=== PATIENT | male | born 1990 | race Asian ===

== ENCOUNTER 2016-08-25 01:04 | Emergency (ER) | payer BC ==
[~2016-08-25] VITALS: Ht 170.2 cm; Wt 72.6 kg
[2016-08-25 01:10] VITALS: BP_SYST 139
[2016-08-25 01:50] LABS: BILIRUBIN,URINE NEGATIVE (NEGATIVE); BLOOD, URINE NEGATIVE (NEGATIVE); CLARITY/URINE CLEAR (CLEAR); COLOR,URINE YELLOW (YELLOW); GLUCOSE,URINE NEGATIVE (NEGATIVE); KETONES,URINE NEGATIVE (NEGATIVE); LEUKOCYTE ESTERASE ,URINE NEGATIVE (NEGATIVE); NITRITE, URINE NEGATIVE (NEGATIVE); PROTEIN URINE NEGATIVE (NEGATIVE); UROBILINOGEN,URINE 0.2 (0.2-1.0)
[2016-08-25 01:58] VITALS: BP_SYST 133
== END 2016-08-25 01:58 | disposition home or self-care (01) ==
LOC: SED 01:04
DX: R10.9 Unspecified abdominal pain (principal)
CPT/HCPCS: 81003; 99283